=== PATIENT | female | born 1960 | race Caucasian/White ===

== ENCOUNTER 2016-12-31 22:07 | Emergency (ER) | payer MEDICARE, OTHER ==
--- NOTE | 2016-12-31 22:29 | ED Physician Documentation ---
Nausea/Vomiting/Diarrhea - HISTORIAN Historian: patient - HPI Chief Complaint: Nausea,Vomiting,Diarrhea Onset: days ago (2 days ago) Duration: constant Last known Well Code/Unknown Code: Known Timing: gradual onset Context: denies: out of country travel, bad food Severity: moderate Further Comments: yes (Patient was started on topiramate about two weeks ago. Started to have an upset stomach. Had been taking petobismal for it. Over the last 2 days became nauseated with vomiting) - Associated Symptoms Vomiting: other (started this evening). denies: bloody, blood-streaked Diarrhea: copious, watery, other (stools black). denies: bloody Abdominal Pain: cramping, mild - ROS CONST: chills. denies: fever CVS/RESP: chest pain GI/: black stools. denies: bloody urine, bloody stools, dark urine, problems urinating - PAST HX Past History: other (hyperlipdemia, depressive disorder, asthma) Other History: hypertension Surgeries/Procedures: other (lower back surgery, neck surgery) Immunizations: referred to PCP Allergies/Adverse Reactions: Allergies Allergy/AdvReac Type Severity Reaction Status Date / Time azithromycin Allergy Severe Hives Verified 12/31/16 22:24 - SOCIAL HX Smoking History: less than 1 pack/day (6-7 a day) Alcohol Use: none Drug Use: none - FAMILY HX Family History: none - VITAL SIGNS Vital Signs: Vital Signs Temp Pulse Resp BP Pulse Ox 97.4 F L 70 19 92/47 99 12/31/16 22:08 12/31/16 22:08 12/31/16 22:08 12/31/16 22:08 12/31/16 22:08 - REVIEWED ASSESSMENTS Nursing Assessment Reviewed: Yes Vitals Reviewed: Yes Progress - Progress Progress: 23:53 Feeling better, awaiting labs. BP has improved with fluids. - EKG/XRAY/CT EKG: NSR, no ST T wave changes Comments: normal ED Results Lab/Radiology - Lab Results Lab Results: Lab Results 12/31/16 12/31/16 23:05 23:05 WBC 13.60 K/ul H K/ul (4.00-12.00) RBC 4.13 M/ul M/ul (3.90-5.20) Hgb 12.3 g/dL g/dL (12.0-16.0) Hct 36.2 % % (34.5-46.5) MCV 87.6 fl fl (80.0-100.0) MCH 29.8 pg pg (28.0-34.0) MCHC 34.1 g/dL g/dL (30.0-36.0) RDW 13.6 % % (11.3-14.3) Plt Count 253 K/mm3 K/mm3 (130-400) Neut % (Auto) 71.1 % % (39.0-79.0) Lymph % (Auto) 21.2 % % (16.0-50.0) Stearns % (Auto) 4.8 % % (0.0-11.0) Eos % (Auto) 1.3 % % (0.0-6.8) Baso % (Auto) 0.4 (0.0-1.5) Neut # (Auto) 9.7 # k/uL H # k/uL (1.4-7.7) Lymph # (Auto) 2.9 # k/uL # k/uL (0.6-4.0) Stearns # (Auto) 0.6 # k/uL # k/uL (0.0-0.9) Eos # (Auto) 0.2 # k/uL # k/uL (0.0-0.6) Baso # (Auto) 0.0 # k/uL # k/uL (0.0-0.5) Reactive Lymphs % 1.2 % % (0.0-5.0) Reactive Lymphs # 0.2 # k/uL # k/uL (0.0-0.8) Sodium 138 mmol/L mmol/L (136-145) Potassium 2.8 mmol/L L mmol/L (3.5-5.0) Chloride 102 mmol/L mmol/L (98-110) Carbon Dioxide 31 mmol/L mmol/L (20-32) BUN 22 mg/dL mg/dL (10-26) Creatinine 1.0 mg/dL mg/dL (0.4-1.5) Estimated Creat Clear 87 Est GFR ( Amer) > 60 (60 - ) Est GFR (Non-Af Amer) > 60 (60 - ) Glucose 98 mg/dL mg/dL (70-99) Calcium 9.2 mg/dL mg/dL (8.5-10.5) Total Bilirubin 0.9 mg/dL mg/dL (0.2-1.2) AST 37 U/L U/L (0-41) ALT 44 U/L U/L (0-45) Alkaline Phosphatase 67 U/L U/L (46-116) Total Protein 7.7 g/dL g/dL (6.0-8.5) Albumin 4.6 g/dL g/dL (3.0-5.5) - Orders Orders: ED Orders Category Date Time Status Place IV Lock 1T Care 12/31/16 22:37 Active ABDOMEN WITH PA CHEST [ABD SERIES PA CHEST] [RAD] Stat Exams 12/31/16 Taken CBC/PLATELET/DIFF Routine Lab 12/31/16 23:05 Completed CMP Routine Lab 12/31/16 23:05 Completed URINALYSIS Routine Lab 12/31/16 23:30 Ordered 0.9 % Sodium Chloride [Normal Saline] 500 ml Med 12/31/16 22:38 Discontinued IV NOW Ondansetron HCl Rapdis [Zofran Odt] Med 01/01/17 00:14 Discontinued 4 mg PO Q6H PRN Ondansetron HCl Rapdis [Zofran Odt] Med 01/01/17 00:17 Discontinued 8 mg PO DIRECTED ONE Ondansetron HCl/Pf [Zofran 4 mg/2 ml] Med 12/31/16 22:59 Discontinued 4 mg IVP NOW ONE Potassium Chloride [Klor-Con M20] Med 01/01/17 00:03 Discontinued 20 meq PO NOW ONE EKG WITH COMPARISON Routine Ther 12/31/16 22:37 Ordered Nausea Physical Exam - EXAM General Appearance: alert, mild distress EENT: eye inspection normal, ENT inspection normal, pharynx normal, no signs of dehydration Neck: normal inspection, thyroid normal, supple. No: lymphadenopathy, stiff neck Respiratory: no resp distress, chest non-tender, breath sounds normal. No: wheezes, rales, rhonchi CVS: reg rate & rhythm, heart sounds normal, equal pulses, no murmur, no gallop Abdomen: non-tender, no organomegaly, tenderness (mild diffuse). No: guarding, rebound, RLQ Back: non-tender Skin: warm/dry, normal color Neuro/Psych: oriented X3, CN's nml as tested, motor nml, sensation nml, mood/ affect nml, cognition normal Discharge Clincal Impression: Nausea & vomiting Referrals: Parvin Mckeon MD [Primary Care Provider] - 2 Days Additional Instructions: Drink a lot of fluids. Take Zofran as needed for nausea. Stop toprimate. Condition: Stable Disposition: 01 HOME, SELF-CARE Decision to Admit: NO Date of Decison to Admit: 01/01/17 Decision Time: 00:08
[2016-12-31] MEDS: 0.9 % SODIUM CHLORIDE 500 ML IV ONE (22:38)
[2016-12-31] MEDS: ONDANSETRON HCL/PF 4 MG/ 2ML VIAL IVP ONE (23:34)
[2016-12-31 23:36] LABS: BASOPHILS % 0.4 (0.0-1.5); EOSINOPHILS % 1.3 % (0.0-6.8); MEAN CORPUSCULAR HEMOGLOBIN 29.8 pg (28.0-34.0); MEAN CORPUSCULAR VOLUME 87.6 fl (80.0-100.0); MONOCYTES % 4.8 % (0.0-11.0); NEUTROPHILS # 9.7 # k/uL (1.4-7.7)
[2016-12-31 23:51] LABS: eGFR (African) > 60; eGFR (Non-African) > 60
[2017-01-01] MEDS ORDERED: ONDANSETRON HCL 4 MG TAB.RAPDIS PO PRN (00:14)
[2017-01-01] MEDS: POTASSIUM CHLORIDE 20 MEQ TABLET.ER PO ONE (00:17)
[2017-01-01] MEDS: ONDANSETRON HCL 4 MG TAB.RAPDIS PO ONE (00:37)
[2017-01-01 00:57] VITALS: BP 119/56
--- NOTE | 2017-01-01 06:16 | Diagnostic Imaging Report ---
EROS CARDONA~ [facility] [address] [facility] [address] [place] [id number] ~ ~ ~ ~ Report Submission Date: Dec 31, 2016 11:38:08 PM CDT Patient ~ Study Name: SWATI GUSMAN ~ Date: Dec 31, 2016 11:13:49 PM CDT ~ Modality Type: CR Gender: F ~ Description: CHEST,ABDOMEN : 56 ~ Institution: [facility] Physician: EROS CARDONA ~ ~ ~ ~ Obstructive series with chest x-ray Clinical history: ~Nausea and vomiting for 3 days. Findings: ~Examination of the chest in single upright view demonstrates the lungs to be clear. ~Cardiovascular and mediastinal silhouettes are within normal limits. Examination of the abdomen in supine and upright views demonstrates postoperative changes status post lumbosacral fusion and left total hip replacement. ~Degenerative changes are seen in the right hip. ~Visualized visceral silhouettes are within normal limits. ~Psoas margins are well-defined and the properitoneal fat lines are preserved. ~There are no unusual intra- abdominal calcifications. ~There is no evidence of obstruction or free air. Impression: 1. ~Postoperative changes. 2. ~No obstruction or free air. ~ Electronically signed on Dec 31, 2016 11:38:08 PM CDT by: Vlad LUCIO
[2017-01-01 07:05] LABS: APPEARANCE,URINE CLOUDY (CLEAR); COLOR,URINE AMBER (YELLOW); OCCULT BLOOD,URINE NEGATIVE (NEGATIVE)
== END 2017-01-01 00:25 | disposition home or self-care (01) ==
LOC: ED 22:07
DX: R11.2 Nausea with vomiting, unspecified (principal)
CPT/HCPCS: 74022; 80053; 81002; 85025; 93005; A9270; J2405; J7060; 96361; 96374; 99283